=== PATIENT | female | born 1985 | race Caucasian/White ===

== ENCOUNTER 2020-06-16 08:00 | Inpatient (IN) | payer OTHER ==
[2020-06-30 11:30] VITALS: BMI 32.8
[2020-06-30] MEDS: ELECTROLYTE-148 SOLN 1,000 ML IV SCH ×2 (11:40→18:32)
[2020-06-30 13:44] LABS: BASO % 0.5 % (0-2.0); EOS % 1.3 % (0-4.5); HEMATOCRIT 29.9 % (32.4-45.2); HEMOGLOBIN 9.2 GM/dL (10.7-15.3); MCH 22.4 pg (25.7-33.7); MCHC 30.9 g/dl (32.0-36.0); MEAN CELL VOLUME 72.6 fl (80-96); MEAN PLT VOLUME 7.8 fl (7.5-11.1); MONO % 4.8 % (3.8-10.2); NEUT % 84.4 % (42.8-82.8); PLATELET COUNT 361 K/MM3 (134-434); RBC 4.12 M/mm3 (3.60-5.2); RDW 22.1 % (11.6-15.6); WHITE BLOOD COUNT 13.4 K/mm3 (4.0-10.0)
[2020-06-30 13:47] LABS: INR 0.95 (0.83-1.09); PROTHROMBIN TIME (PATIENT) 11.2 SEC (9.7-13.0)
[2020-06-30 13:50] LABS: ACTIVATED PTT 26.2 SECONDS (25.2-36.5)
[2020-06-30 14:20] LABS: BLOOD UREA NITROGEN 6.9 mg/dL (7-18); CALCIUM 8.2 mg/dL (8.5-10.1); CREATININE 0.6 mg/dL (0.55-1.3); POTASSIUM 3.8 mmol/L (3.5-5.1)
[2020-06-30 14:34] LABS: ANISOCYTOSIS 1+; MACROCYTOSIS 0; OVALOCYTE 1+; PLATELET ESTIMATE NORMAL; TEAR DROP CELLS 1+
[2020-06-30] MEDS ORDERED: OXYTOCIN 30 UNITS in 0.9% NS 30 UNIT/500 ML INFUS.BAG IVPB ONE ×2 (14:54→19:23)
[2020-06-30] MEDS ORDERED: BUTORPHANOL TARTRATE 1 MG/ML VIAL IVPUSH PRN (15:01)
--- NOTE | 2020-06-30 15:01 | HP ---
Past Medical History - Admission Chief Complaint: Labor pain History of Present Illness: 34 yo @ 1 weeks gestation with one prior presents to L&D for induction of labor. Patient desires Vaginal After . Upon admission she was 2cm dilated. History Source: Patient Limitations to Obtaining History: No Limitations - Past Medical History ...: 3 ...Para: 1 ...Term: 1 ...: 0 ...Spon : 0 ...Induced : 1 ...Living Children: 0 ...Multiple Gestation: 0 ...EDC by Sono: 06/23/20 - Past Surgical History Past Surgical History: Yes: Hx Myomectomy: No Hx Transabdominal Cerclage: No - Smoking History Smoking history: Never smoked Have you smoked in the past 12 months: No Aproximately how many cigarettes per day: 0 - Alcohol/Substance Use Hx Alcohol Use: No History of Substance Use: reports: None - Social History Usual Living Arrangement: Yes: With Significant Other ADL: Independent History of Recent Travel: No Home Medications - Allergies Allergies/Adverse Reactions: Allergies Allergy/AdvReac Type Severity Reaction Status Date / Time No Known Allergies Allergy Verified 06/30/20 11:09 - Home Medications Home Medications: Ambulatory Orders Vitamins (Sjr) - 1 tab PO DAILY 06/25/20 Family Medical History Family History: Unremarkable Review of Systems - Review of Systems Constitutional: reports: No Symptoms Eyes: reports: No Symptoms HENT: reports: No Symptoms Neck: reports: No Symptoms Cardiovascular: reports: No Symptoms Respiratory: reports: No Symptoms Gastrointestinal: reports: No Symptoms Genitourinary: reports: Pain Breasts: reports: No Symptoms Reported Musculoskeletal: reports: No Symptoms Neurological: reports: No Symptoms Psychiatric: reports: No Symptoms Pain Intensity: 4 Physical Exam - Maternity Vital Signs: Vital Signs Temperature 98.2 F 06/30/20 14:00 Pulse Rate 82 06/30/20 14:00 Respiratory Rate 06/30/20 14:00 Blood Pressure 117/67 06/30/20 14:00 O2 Sat by Pulse Oximetry (%) Constitutional: Yes: No Distress Eyes: Yes: Conjunctiva Clear HENT: Yes: Atraumatic Neck: Yes: Supple Cardiovascular: Yes: Regular Rate and Rhythm Lungs: Clear to auscultation - Abdominal Exam/OB Number of Fetuses: Single Presentation: Vertex Contractions: Yes Regularity: Irregular Intensity: Mild - Vaginal Exam/OB Vaginal Bleeding: No Speculum Exam: No Dilatation (cm): 2 Effacement (%): 70 Amniotic Membrane Status: Ruptured Amniotic Fluid: Yes: Meconium Stained Meconium: Light Presentation: Vertex/Position Station: -3 - Physical Exam Musculoskeletal: Yes: WNL Extremities: Yes: WNL ...Motor Strength: WNL Psychiatric: Yes: Alert, Oriented - Labs Lab Results: CBC, BMP 06/30/20 12:49 06/30/20 12:49
[2020-06-30] MEDS ORDERED: PROMETHAZINE HCL 25 MG/1 ML VIAL IVPB PRN (15:02)
[2020-06-30] MEDS: OXYTOCIN 30 UNITS in 0.9% NS 30 UNIT/500 ML INFUS.BAG IVPB SCH (15:15)
[2020-06-30] MEDS ORDERED: PROMETHAZINE HCL 25 MG/1 ML VIAL ONE (16:16)
[2020-06-30] MEDS ORDERED: BUTORPHANOL TARTRATE 2 MG/ML VIAL ONE (16:16)
[2020-06-30] MEDS ORDERED: PCA PUMP NR ONE (18:38)
[2020-06-30] MEDS ORDERED: FENTANYL/BUPIVACAINE/NS/PF - PCEA - 50 ML DISP.SYRIN EP ONE ×2 (18:38→23:09)
--- NOTE | 2020-06-30 18:38 | PN ---
Progress Note (short form) - Note Progress Note: 34 yo @ 41 weeks gestation, admitted for induction of labor, seen and evaluated. She c/o moderate discomfort. S/P stadol 2 hours ago. FHR : Reassuring [place] ; + regular contractions VE : 3 / 80/-2 AROM ( + meconium stained ) A/P: Postdates Previous trial Continue Pitocin Epidural anesthesia Anticipate
[2020-06-30] MEDS ORDERED: ELECTROLYTE-148 SOLN 1,000 ML IV SCH (18:45)
[2020-06-30] MEDS ORDERED: BUPIVACAINE HCL/PF 0.25% (2.5MG/ML) 10 ML VIAL ONE (18:50)
[2020-06-30] MEDS ORDERED: NALOXONE HCL 0.4 MG/ML VIAL IVPUSH PRN (19:26)
[2020-06-30] MEDS ORDERED: FENTANYL/BUPIVACAINE/NS/PF - PCEA - 50 ML DISP.SYRIN EP SCH (19:30)
[2020-06-30] MEDS ORDERED: ACETAMINOPHEN 325 MG TABLET (FP) ONE (22:49)
[2020-06-30] MEDS ORDERED: ACETAMINOPHEN 325 MG TABLET (FP) PO ONE (23:00)
[2020-07-01] MEDS ORDERED: FENTANYL/BUPIVACAINE/NS/PF - PCEA - 50 ML DISP.SYRIN EP ONE ×3 (03:33→10:31)
[2020-07-01] MEDS ORDERED: PCA PUMP NR ONE (07:19)
--- NOTE | 2020-07-01 08:39 | PN ---
Progress Note (short form) - Note Progress Note: 34 yo @ 41 weeks gestation, admitted for induction of labor, seen and evaluated. She's lying comfortably in bed. She received epidural anesthesia over night. FHR : 150's, moderate variability, occasional variable decelerations. [place] ; + regular contractions VE : 6/100/0 AROM ( + meconium stained ) A/P: Postdates Previous trial Continue Pitocin Anticipate
[2020-07-01] MEDS ORDERED: AMPICILLIN - 2 GM in SODIUM CHLORIDE 100 ML IVPB ONE (09:00)
[2020-07-01] MEDS ORDERED: AMPICILLIN SODIUM 2 GM VIAL ONE (09:19)
[2020-07-01] MEDS ORDERED: ACETAMINOPHEN 325 MG TABLET (FP) ONE (11:01)
[2020-07-01] MEDS ORDERED: ACETAMINOPHEN 325 MG TABLET (FP) PO ONE (11:30)
[2020-07-01] MEDS ORDERED: LIDOCAINE HCL 1% PRESERVATIVE FREE - 30ML VIAL ONE (12:14)
[2020-07-01] MEDS ORDERED: OXYTOCIN 20 UNITS in 0.9% NS 20 UNIT/1,000 ML INFUS.BAG IV ONE (12:14)
[2020-07-01] MEDS: AMPICILLIN - 1 GM in SODIUM CHLORIDE 100 ML IVPB SCH ×3 (12:15→21:05)
[2020-07-01] MEDS ORDERED: AMPICILLIN SODIUM 1 GM VIAL ONE ×2 (12:21→17:24)
[2020-07-01] MEDS ORDERED: METHYLERGONOVINE MALEATE 0.2 MG/1 ML AMP IM PRN (13:59)
[2020-07-01] MEDS ORDERED: BENZOCAINE 28 GM HEMORRHOIDAL OINTMENT TP PRN (13:59)
[2020-07-01] MEDS ORDERED: BISACODYL 10 MG SUPP.RECT RC PRN (13:59)
[2020-07-01] MEDS ORDERED: BENZOCAINE 20% 57 GM BOTTLE TP PRN (13:59)
[2020-07-01] MEDS ORDERED: WITCH HAZEL 50% (TUCKS) 40 PAD/JAR PAD TP PRN (13:59)
[2020-07-01] MEDS ORDERED: OXYTOCIN 20 UNITS in 0.9% NS 20 UNIT/1,000 ML INFUS.BAG IV SCH (14:00)
--- NOTE | 2020-07-01 14:04 | PN ---
Delivery - Delivery Vaginal Delivery: V-Sonia Type of Anesthesia: Epidural Episiotomy/Laceration: 1st degree EBL (cc): 300 Delivery, Single - Feeding Plan Initial Plan: Elected not to breastfeed exclusively throughout hospitalization Remarks - Remarks Remarks: Normal spontaneous vaginal delivery of a live infant boy over first degree laceration. Nose / Oropharynx suctioned @ perineum. Nuchal cord x 1 clamped and cut. Baby handed to nurse. Placenta expelled spontaneously intact. Laceration repaired with 2.0 Biosyn
--- NOTE | 2020-07-01 14:16 | PD.OB.PROG ---
Past Medical History - Primary Care Physician Documenting Provider Type: Attending - Admission Chief Complaint: Passing bloody mucus History of Present Illness: 34 yo @ 40 weeks gestation, with previous , presents c/o passing bloody mucus. She denies any contractions pain. Nitrazine test was negative. FHR : Reassuring [place] : No contractions VE : Cervix closed, scant bloody discharge. 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 Cardio/Vascular: Denies/None Pulmonary: Denies/None Gastrointestinal: Denies/None ...: 3 ...Para: 1 ...Term: 1 ...: 0 ...Spon : 0 ...Induced : 1 ...Living Children: 0 ...Multiple Gestation: 0 ...EDC by Sono: 06/23/20 - Past Surgical History Past Surgical History: Yes: - Smoking History Smoking history: Never smoked Have you smoked in the past 12 months: No Aproximately how many cigarettes per day: 0 - Alcohol/Substance Use Hx Alcohol Use: No History of Substance Use: reports: None - Social History ADL: Independent History of Recent Travel: No Review of Systems - Review of Systems Constitutional: reports: No Symptoms Eyes: reports: No Symptoms HENT: reports: No Symptoms Neck: reports: No Symptoms Cardiovascular: reports: No Symptoms Respiratory: reports: No Symptoms Gastrointestinal: reports: No Symptoms Genitourinary: reports: Other (Bloody mucus) Breasts: reports: No Symptoms Reported Musculoskeletal: reports: No Symptoms Integumentary: reports: No Symptoms Neurological: reports: No Symptoms Psychiatric: reports: No Symptoms Pain Intensity: 0 Physical Exam - Obstetrical Vital Signs: Vital Signs Temperature 100.1 F H 07/01/20 10:50 Pulse Rate 87 07/01/20 11:45 Respiratory Rate 17 07/01/20 11:45 Blood Pressure 118/62 07/01/20 11:45 O2 Sat by Pulse Oximetry (%) 100 07/01/20 11:45 Constitutional: Yes: No Distress Eyes: Yes: Conjunctiva Clear HENT: Yes: Atraumatic Neck: Yes: Supple Cardiovascular: Yes: Regular Rate and Rhythm Lungs: Clear to auscultation - Abdominal Exam/OB Number of Fetuses: Single Presentation: Vertex - Vaginal Exam/OB Vaginal Bleeding: Light Station: -3 - Physical Exam Extremities: Yes: WNL - Labs Lab Results: CBC, BMP 06/30/20 12:49 06/30/20 12:49 Problem List - Problems (1) 40 weeks gestation of Problems reviewed: Yes Code(s): Z3A.40 - 40 WEEKS GESTATION OF Assessment/Plan 40 weeks gestation Vaginal spotting Labor precautions Anticipate F/U with MD as scheduled
[2020-07-01] MEDS: DEXTROSE 5%-LACTATED RINGERS 1,000 ML IV SCH ×2 (14:18→15:33)
[2020-07-01] MEDS: OXYTOCIN 30 UNITS in 0.9% NS 30 UNIT/500 ML INFUS.BAG IVPB SCH (15:33)
[2020-07-01] MEDS ORDERED: SODIUM CHLORIDE 100 ML IVPB ONE (17:24)
[2020-07-01] MEDS: ACETAMINOPHEN 325 MG TABLET (FP) PO PRN (17:33)
[2020-07-01] MEDS: IBUPROFEN 600 MG TABLET (FP) PO PRN (17:34)
[2020-07-01] MEDS: FERROUS SO4 325 MG TABLET (FP) PO SCH (22:38)
[2020-07-02] MEDS: ACETAMINOPHEN 325 MG TABLET (FP) PO PRN ×3 (03:26→15:06)
[2020-07-02] MEDS: IBUPROFEN 600 MG TABLET (FP) PO PRN (03:26)
[2020-07-02 08:13] LABS: BASO % 0.3 % (0-2.0); EOS % 1.9 % (0-4.5); HEMATOCRIT 24.9 % (32.4-45.2); HEMOGLOBIN 7.7 GM/dL (10.7-15.3); LYMPH % 9.7 % (8-40); MCH 22.3 pg (25.7-33.7); MCHC 30.8 g/dl (32.0-36.0); MEAN CELL VOLUME 72.6 fl (80-96); MEAN PLT VOLUME 7.5 fl (7.5-11.1); MONO % 5.5 % (3.8-10.2); NEUT % 82.6 % (42.8-82.8); PLATELET COUNT 302 K/MM3 (134-434); RBC 3.43 M/mm3 (3.60-5.2); RDW 22.6 % (11.6-15.6); WHITE BLOOD COUNT 20.5 K/mm3 (4.0-10.0)
--- NOTE | 2020-07-02 08:28 | PN ---
Post Note - Post Date of Delivery: 07/01/20 Vital Signs: Vital Signs - 24 hr 07/01/20 07/01/20 07/01/20 08:30 08:45 09:00 Temperature 99.6 F Pulse Rate 80 88 87 Respiratory 17 17 17 Rate Blood Pressure 99/51 L 107/51 L 111/53 L O2 Sat by Pulse 100 100 100 Oximetry (%) 07/01/20 07/01/20 07/01/20 09:15 09:30 09:45 Temperature Pulse Rate 84 81 81 Respiratory 17 17 17 Rate Blood Pressure 110/48 L 103/55 L 102/52 L O2 Sat by Pulse 100 100 100 Oximetry (%) 07/01/20 07/01/20 07/01/20 10:00 10:15 10:30 Temperature 99.7 F H Pulse Rate 83 91 H 17 L Respiratory 17 17 85 H Rate Blood Pressure 104/55 L 108/53 L 112/49 L O2 Sat by Pulse 100 99 100 Oximetry (%) 07/01/20 07/01/20 07/01/20 10:45 10:50 11:00 Temperature 100.1 F H Pulse Rate 88 79 Respiratory 17 17 Rate Blood Pressure 105/57 L 100/53 L O2 Sat by Pulse 100 100 Oximetry (%) 07/01/20 07/01/20 07/01/20 11:15 11:30 11:45 Temperature Pulse Rate 88 76 87 Respiratory 17 17 17 Rate Blood Pressure 110/64 112/62 118/62 O2 Sat by Pulse 100 100 100 Oximetry (%) 07/01/20 07/01/20 07/01/20 12:00 12:15 12:30 Temperature Pulse Rate 87 85 94 H Respiratory 17 17 17 Rate Blood Pressure 122/74 117/59 L 108/85 O2 Sat by Pulse 100 100 100 Oximetry (%) 07/01/20 07/01/20 07/01/20 13:50 14:05 14:20 Temperature Pulse Rate 107 H 86 88 Respiratory 17 17 17 Rate Blood Pressure 141/70 122/61 122/65 O2 Sat by Pulse 100 98 98 Oximetry (%) 07/01/20 07/01/20 07/01/20 14:35 14:50 16:00 Temperature 98.9 F Pulse Rate 87 90 69 Respiratory 17 17 18 Rate Blood Pressure 116/66 109/52 L 119/73 O2 Sat by Pulse 96 95 Oximetry (%) 07/01/20 07/01/20 07/02/20 18:00 21:32 05:58 Temperature 98.6 F 97.3 F L 97.5 F L Pulse Rate 79 65 96 H Respiratory 18 18 18 Rate Blood Pressure 112/69 96/61 90/56 L O2 Sat by Pulse Oximetry (%) - Subjective Subjective: No Complaints - Objective Breast: Not engorged Abdomen: Soft, Non-tender Uterus: Fundus firm Vagina: Scant lochia
[2020-07-02 09:34] LABS: ANISOCYTOSIS 2+; MACROCYTOSIS 0; PLATELET ESTIMATE NORMAL
[2020-07-02] MEDS ORDERED: DIPHTH,PERTUSS(ACELL),TET 0.5 ML DISP.SYRIN IM ONE (10:00)
[2020-07-02] MEDS: FERROUS SO4 325 MG TABLET (FP) PO SCH ×2 (10:00→21:26)
[2020-07-02] MEDS: PRENATAL VITAMINS W/ FOLIC ACID TABLET (FP) PO SCH (10:01)
[2020-07-02 21:50] VITALS: PULSE 75
[2020-07-02] MEDS ORDERED: SENNOSIDES/DOCUSATE COMBO (SENNA PLUS) TABLET (UD) PO PRN (22:00)
[2020-07-03] MEDS: IBUPROFEN 600 MG TABLET (FP) PO PRN (06:50)
[2020-07-03] MEDS: ACETAMINOPHEN 325 MG TABLET (FP) PO PRN (06:50)
[2020-07-03 10:04] VITALS: BP 103/63; TEMP 98.4
[2020-07-03] MEDS: FERROUS SO4 325 MG TABLET (FP) PO SCH (10:12)
[2020-07-03] MEDS: PRENATAL VITAMINS W/ FOLIC ACID TABLET (FP) PO SCH (10:12)
--- NOTE | 2020-07-03 10:27 | DS ---
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: Vital Signs Temperature 98.4 F 07/03/20 10:00 Pulse Rate 75 07/03/20 10:00 Respiratory Rate 20 07/03/20 10:00 Blood Pressure 103/63 07/03/20 10:00 O2 Sat by Pulse Oximetry (%) 99 07/02/20 14:00 Constitutional: No: No Distress Eyes: Yes: Conjunctiva Clear Neck: Yes: Supple Cardiovascular: No: Tachycardia Respiratory: Yes: Regular, CTA Bilaterally Gastrointestinal: Yes: Normal Bowel Sounds External Genitalia: Yes: Normal Vaginal Exam: Yes: Bleeding Cervix: Yes: Bleeding Uterus: Yes: Firm ....Post : Yes: Uterus firm, Moderate lochia serosa Breast(s): Yes: WNL Musculoskeletal: Yes: WNL Extremities: Yes: WNL Neurological: Yes: Alert, Oriented ...Motor Strength: WNL Labs: CBC, BMP 07/02/20 07:13 06/30/20 12:49 Delivery - Delivery Vaginal Delivery: V-Sonia Type of Anesthesia: Epidural Episiotomy/Laceration: 1st degree EBL (cc): 300 Delivery, Single - Stages of Labor Date 1st Stage Initiatied: 06/30/20 Time 1st Stage Initiated: 16:20 Date 2nd Stage Initiated: 07/01/20 Time 2nd Stage Initiated: 12:40 Date of Delivery: 07/01/20 Time of Delivery: 13:41 Time Placenta Delivered: 13:45 - 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 Plan of Treatment: Ferrous sulfate x 90 days Keflex for 1 week F/U with MD in 4 weeks Goals: Resume regular activities in 6 weeks Condition: Good - Instructions Diet, Activity, Other Instructions: return to office in 4-6 weeks. call for appointment. Referrals: Edyta Ramos MD [Staff Physician] - Disposition: HOME - Home Medications Comprehensive Discharge Medication List: Ambulatory Orders Vitamins (Sjr) - 1 tab PO DAILY 06/25/20 Cephalexin [Keflex] 500 mg PO BID 7 Days #14 capsule 07/03/20 Iron/C/Folate/B12/Zinc/Succin [Feriva 21-7 Tablet] 1 each PO DAILY 90 Days #90 tablet 07/03/20
== END 2020-07-03 13:00 | disposition home or self-care (01) | DRG 807 ==
LOC: JLDR 06-30 10:30 → J3W 07-01 16:00
PROVIDERS: ADMIT Obstetrics & Gynecology; ATTEND Obstetrics & Gynecology
PROC: 0HQ9XZZ Repair Perineum Skin, External Approach (ICD-10-PCS; principal; 2020-07-01)
PROC: 10E0XZZ Delivery of Products of Conception, External Approach (ICD-10-PCS; 2020-07-01)
DX: O48.0 Post-term pregnancy (principal); Z37.0 Single live birth; O34.219 Maternal care for unspecified type scar from previous cesarean delivery; O70.0 First degree perineal laceration during delivery; Z3A.40 40 weeks gestation of pregnancy
CPT/HCPCS: 36415; 59409; 80048; 85025; 85610; 85730; 86780; 86850; 86900; 86901; 90715